=== PATIENT | female | born 1955 | race Caucasian/White ===

== ENCOUNTER → 2017-06-14 | Outpatient (CLI) | payer BC ==
--- NOTE | 2017-06-14 08:27 | US ---
EXAMINATION TYPE: US carotid duplex BILAT DATE OF EXAM: 06/14/2017 COMPARISON: NONE CLINICAL HISTORY: Carotid Occlusive Disease I65.29. EXAM MEASUREMENTS: RIGHT: Peak Systolic Velocity (PSV) cm/sec ----- Right CCA: 100.7 ----- Right ICA: 73.1 ----- Right ECA: 79.4 ICA/CCA ratio: 0.7 RIGHT: End Diastole cm/sec ----- Right CCA: 30.3 ----- Right ICA: 24.5 ----- Right ECA: 17.2 LEFT: Peak Systolic Velocity (PSV) cm/sec ----- Left CCA: 90.7 ----- Left ICA: 84.6 ----- Left ECA: 65.0 ICA/CCA ratio: 0.9 LEFT: End Diastole cm/sec ----- Left CCA: 28.6 ----- Left ICA: 35.3 ----- Left ECA: 17.4 VERTEBRALS (direction of flow): Right Vertebral: Antegrade Left Vertebral: Antegrade Rhythm: Normal No significant velocity elevations. IMPRESSION: No sonographic evidence of hemodynamically significant stenosis within either carotid ar terial system.
== END | disposition home or self-care (01) ==
LOC: RADUSWWP 07:22
PROVIDERS: ATTEND Psychiatry & Neurology Neurology
DX: I65.29 Occlusion and stenosis of unspecified carotid artery (principal)
CPT/HCPCS: 93880

== ENCOUNTER 2017-12-23 11:02 | Day surgery (SDC) | payer BC ==
[2017-12-21 16:14] VITALS: BMI 25.9
[~2017-12-23 11:02] MED LIST: LACTATED RINGERS 1,000 ML IV SCH
[2017-12-23 11:21] VITALS: RESP 16; TEMP 97.8
[2017-12-23] MEDS ORDERED: LIDOCAINE 1% 20 ML VIAL (10MG/ML) FOR IV START INTRADERMA ONE (11:31)
[2017-12-23] MEDS ORDERED: LIDOCAINE 1% INJ 10MG/ML (20 ML MDV) ONE (11:56)
[2017-12-23] MEDS ORDERED: PROPOFOL 10 MG/ML 20 ML VIAL IV ONE (11:56)
--- NOTE | 2017-12-23 12:15 | P.PCN ---
Date of Procedure: 12/23/17 Procedure(s) Performed: BRIEF HISTORY: Patient is a 62-year-old pleasant white female, scheduled for an elective colonoscopy as a part of screening for colorectal neoplasia. PROCEDURE PERFORMED: Colonoscopy with biopsy. PREOPERATIVE DIAGNOSIS: Screening for colon cancer. IV sedation per Anesthesia. PROCEDURE: After informed consent was obtained, the patient, was brought into the endoscopy unit. IV sedation was administered by Anesthesia under continuous monitoring. Digital rectal examination was normal. Initially the Olympus CF- 160 flexible video colonoscope was then inserted in the rectum, gradually advanced into the cecum without any difficulty. Careful examination was performed as the scope was gradually being withdrawn. Ileocecal valve and the appendiceal orifice were visualized and appeared normal. Prep was excellent. Mucosa of the cecum, ascending colon, transverse colon, descending colon, sigmoid colon, and rectum appeared normal. In the sigmoid colon there was a 5 m sessile polyp removed by cold biopsy. Retroflexion was performed in the rectum and no lesions were seen. The patient tolerated the procedure well. IMPRESSION: 5 mm sessile sigmoid colon polyp status post removal by cold biopsy Rest of the colon appeared normal RECOMMENDATIONS: Findings of this examination were discussed with the patient as well as a family. She was advised to follow with the biopsy results and if the biopsy shows adenoma she can have a repeat colonoscopy in 5 years.
[2017-12-23 12:54] VITALS: BP 171/67; PULSE 50
== END 2017-12-23 13:10 | disposition home or self-care (01) ==
LOC: ORWHC2ENDO 11:02
PROVIDERS: ATTEND Internal Medicine Gastroenterology
DX: Z12.11 Encounter for screening for malignant neoplasm of colon (principal); D12.5 Benign neoplasm of sigmoid colon; I71.2 Thoracic aortic aneurysm, without rupture; E07.9 Disorder of thyroid, unspecified; F90.9 Attention-deficit hyperactivity disorder, unspecified type; Z88.5 Allergy status to narcotic agent; Z88.0 Allergy status to penicillin; Z79.890 Hormone replacement therapy; Z79.899 Other long term (current) drug therapy; Z87.891 Personal history of nicotine dependence
CPT/HCPCS: 88305; 45380; J2001; J2704

== ENCOUNTER → 2018-01-03 | Outpatient (CLI) | payer BC ==
--- NOTE | 2018-01-05 10:33 | MM ---
Reason for exam: screening (asymptomatic). Last mammogram was performed 3 years and 5 months ago. History: Patient is postmenopausal. Excisional biopsy of the left breast. Physical Findings: A clinical breast exam by your physician is recommended on an annual basis and results should be correlated with mammographic findings. MG 3D Screening Mammo W/Cad Bilateral CC and MLO view(s) were taken. Prior study comparison: July 27, 2014, bilateral MG screening mammo w CAD. October 16, 2009, bilateral digital screening mammogram. There are scattered fibroglandular densities. No significant changes when compared with prior studies. ASSESSMENT: Negative, BI-RAD 1 RECOMMENDATION: Routine screening mammogram of both breasts in 1 year.
== END | disposition home or self-care (01) ==
LOC: RADMAMWWP 15:32
PROVIDERS: ATTEND Family Medicine
DX: Z12.31 Encounter for screening mammogram for malignant neoplasm of breast (principal)
CPT/HCPCS: 77063; 77067

== ENCOUNTER → 2018-08-02 | Outpatient (CLI) | payer BC ==
--- NOTE | 2018-08-03 22:38 | BD ---
EXAMINATION TYPE: Axial Bone Density DATE OF EXAM: 08/02/2018 COMPARISON: NONE CLINICAL HISTORY: stress fracture left foot Height: 5'2 3/4 Weight: 164 FRAX RISK QUESTIONS: History of Fracture in Adulthood: y Secondary Osteoporosis: RISK FACTORS HISTORY OF: Family History of Osteoporosis: y Diet low in dairy products/other sources of calcium: y Postmenopausal woman: y MEDICATIONS: Thyroid Medications: Which medication: Levothyroxine How Lon years Additional Medications: adderol Additional History: EXAM MEASUREMENTS: Bone mineral densitometry was performed using the [employer] System. Bone mineral density as measured about the Lumbar spine is: ----- L1-L4(G/cm2): 1.038 T Score Values are as follows: ----- L2: -1.3 ----- L3: -0.7 ----- L4: -1.7 ----- L1-L4: -1.2 Bone mineral density about the R hip (g/cm2): 0.795 Bone mineral density about the L hip (g/cm2): 0.824 T Score values are as follows: -----R Neck: -1.8 -----L Neck: -1.5 -----R Total: -1.8 -----L Total: -1.8 IMPRESSION: Osteopenia (T Score between -2.5 and -1). There is slightly increased risk of fracture and the patient may be considered for treatment. Re-Screen 2-5 years. NOTE: T-SCORE=SD OF THE YOUNG ADULT MEAN.
== END ==
LOC: RADBDWWP 16:03
PROVIDERS: ATTEND Family Medicine
DX: M85.80 Other specified disorders of bone density and structure, unspecified site (principal); M84.375D Stress fracture, left foot, subsequent encounter for fracture with routine healing
CPT/HCPCS: 77080

== ENCOUNTER 2019-01-20 05:55 | Day surgery (SDC) | payer BC, OTHER ==
[~2019-01-20 05:55] MED LIST changes: +DEXAMETHASONE SOD PHOSPHATE 10 MG/ML 1 ML VIAL IV ONE; -LACTATED RINGERS 1,000 ML IV SCH; +MIDAZOLAM 2 MG/2 ML VIAL IV PRN; +ONDANSETRON 4 MG/2 ML VIAL IVP ONE; +fentaNYL (PF) 50 MCG/ML 2 ML AMP IV PRN
[2019-01-20] MEDS: SODIUM CHLORIDE 0.9% 1,000 ML IV SCH ×3 (06:24→19:54)
[2019-01-20] MEDS ORDERED: CLINDAMYCIN 600 MG in SODIUM CHLORIDE 0.9% IRRIGATIO 250 ML IRRIGATION ONE (07:00)
[2019-01-20] MEDS ORDERED: CLINDAMYCIN 900 MG in DEXTROSE 5% IN WATER 50 ML IVPB ONE ×2 (07:00)
[2019-01-20] MEDS ORDERED: fentaNYL (PF) 50 MCG/ML 2 ML AMP ONE (07:22)
[2019-01-20] MEDS ORDERED: MIDAZOLAM 2 MG/2 ML VIAL ONE (07:22)
[2019-01-20] MEDS ORDERED: PROPOFOL 10 MG/ML 20 ML VIAL IV ONE (07:22)
[2019-01-20] MEDS ORDERED: IOPAMIDOL-250 50ML BTL IV ONE (07:33)
[2019-01-20] MEDS ORDERED: LIDOCAINE 1% INJ 10MG/ML (20 ML MDV) ONE (07:41)
[2019-01-20] MEDS ORDERED: ACETAMINOPHEN TAB 325 MG TAB PO PRN (09:22)
--- NOTE | 2019-01-20 09:35 | P.PCN ---
Date of Procedure: 01/20/19 Preoperative Diagnosis: Cardiomyopathy, nonischemic with ejection fraction of less than 30%, congestive heart failure Postoperative Diagnosis: The same. Status post single-chamber AICD implantation Procedure(s) Performed: Single-chamber AICD implantation Description of Procedure: HISTORY: This is a 63-year-old female with history of nonischemic heart myopathy and CHF with an ejection fraction of less than 30%. Patient is advised to have prophylactic AICD implantation. CONSENT:I have discussed the risks, benefits and alternative therapies for the above-mentioned procedure and for both sedation/analgesia as well as necessary blood product administration, if indicated, as they pertain to this patient. The patient has indicated understanding and acceptance of the risks and procedures discussed. PROCEDURE: Patient was brought to the lab in a fasting state. Patient was prepped and draped in the usual fashion. Patient is given anesthesia by department of anesthesia. The skin below the left clavicle was infiltrated with lidocaine. An incision was made parallel to deltopectoral groove was deepened until the pectoral fascia was exposed. A pocket was created by blunt dissection and cautery. Axillary venography was performed to delineate the course of the axillary vein. A single venous stick was performed into extrathoracic portion of the axillary vein and a single sheath was advanced over the guidewires and left in subclavian vein. Conscious Sedation: As per anesthesia Duration 53 minutes minutes LEADS: VENTRICULAR: This is manufactured by [employer]. Model number is [id number] and the serial number is [id number]. THE DEVICE: This is manufactured by [employer]. The model number is [id number] and the serial number is [id number]. The ventricular lead is maneuvered l with help of a straight and curved stylets into the left ventricle apical region. Satisfactory position was obtained and threshold measurements were made. The atrial lead was then maneuvered into the right atrial appendage. And thresholds were obtained. THRESHOLDS: VENTRICLE: The minimal pacing threshold is 1 at pulse width of 0.5. The impedance is 9 and 85 ohms. R-wave: 10.1, DFT TESTING: Patient was given deep anesthesia. Ventricular fibrillation was induced with the T shock. It was appropriately detected by device and a 15 J shock converted her back to sinus rhythm. No immediate complications The leads and pulse generator remained in the pocket after it was washed with antibiotics. Pocket was closed in the usual fashion. The fascia was closed with 2-0 Prolene ,the subcutaneous tissue was closed with 3-0 Prolene and the skin was closed with 4-0 Prolene. PROGRAMMING: Jony therapy: MODE: VVI RATE: 40 OUTPUT: Ventricle: 3.5 Tachycardia therapy: VF zone is programmed to a rate of 1 88 bpm. Initial detection is programmed to 30 out of 40 and the lead is programmed followed of 16. The therapies are programmed to 25 J followed by 355. VT zone is programmed to a rate of 167. Therapies are programmed to burst pacing followed with ramp pacing followed by cardioversion 4. Monitor zone is programmed to a rate of 1 50 bpm FINAL IMPRESSION: #1 axillary venography #2 successful implantation of single- chamber single coil AICD #3. DFT testing COMPLICATIONS: None PLAN:. Continue prophylactic antibiotics. Continue to monitor her in the selective care unit. Possible discharge in a.m. Chest x-ray in the morning
[2019-01-20] MEDS: LACTATED RINGERS 1,000 ML IV SCH (13:49)
[2019-01-20] MEDS: CLINDAMYCIN 900 MG in DEXTROSE 5% IN WATER 50 ML IVPB SCH ×4 (14:22→19:53)
[2019-01-20 15:04] VITALS: BMI 22.3
[2019-01-20] MEDS ORDERED: HYDROmorphone 0.5 MG/0.5 ML SYRINGE IVP STA (19:50)
[2019-01-20] MEDS ORDERED: diphenhydrAMINE 50 MG/ML 1 ML VIAL IVP STA (20:36)
[2019-01-20] MEDS ORDERED: methylPREDNISolone SOD SUCCI 125 MG/2 ML VIAL IV STA (20:52)
[2019-01-21] MEDS: CLINDAMYCIN 900 MG in DEXTROSE 5% IN WATER 50 ML IVPB SCH ×4 (00:24→05:43)
[2019-01-21] MEDS: SODIUM CHLORIDE 0.9% 1,000 ML IV SCH ×2 (05:42)
[2019-01-21] MEDS: LACTATED RINGERS 1,000 ML IV SCH (06:23)
--- NOTE | 2019-01-21 06:36 | XR ---
EXAMINATION TYPE: XR chest 2V DATE OF EXAM: 01/21/2019 HISTORY: Lead placement check. REFERENCE: None. FINDINGS: There has been a previous internal fixation of the left clavicle. Unipolar pacemaker is been inserted via a left subclavian approach. The tip overlies the right ventri simon. The heart is enlarged. There are small, bilateral effusions. The lungs are clear. IMPRESSION: SATISFACTORY PACEMAKER LEAD PLACEMENT.
[2019-01-21 09:01] VITALS: BP 105/72; PULSE 92; RESP 16; TEMP 97.9
--- NOTE | 2019-01-21 12:52 | P.DS ---
Providers Attending physician: Keeley Saravia Primary care physician: [facility] Course: This is a pleasant 63-year-old female past medical history significant for nonischemic cardiomyopathy and systolic heart failure with ejection fraction less than 30%. She underwent prophylactic single chamber AICD implantation with Dr. Saravia yesterday. She had an episode of rash and itching yesterday afternoon after receiving a dose of Dilaudid for pain. The Dilaudid was subsequently discontinued and Benadryl given. The patient's symptoms subsided. She is seen and examined sitting up in bed in no acute distress. She denies symptoms of chest discomfort, shortness of breath, dizziness or palpitations. Chest x-ray obtained this morning was normal. Her [employer] device was interrogated and is functioning normally. Blood pressure 105/72 heart rate 92 afebrile maintaining oxygen saturation on room air. The left anterior chest wall site of insertion is clean, dry and intact with no evidence of bleeding, hematoma or infection. Currently maintained on aspirin 81 mg daily, Aldactone 25 mg daily, carvedilol 6.25 mg twice a day, atorvastatin 40 mg daily, lisinopril 5 mg daily, Lasix 20 mg daily and Synthroid 150 g daily. GENERAL: Well-appearing, well-nourished and in no acute distress. NECK: Supple without JVD or thyromegaly. LUNGS: Breath sounds clear to auscultation bilaterally. Respiration equal and unlabored. No wheezes, rales or rhonchi. HEART: Regular rate and rhythm with systolic ejection murmur, no rubs or gallops. S1 and S2 heard. EXTREMITIES: Normal range of motion, no edema. No clubbing or cyanosis. Peripheral pulses intact. ASSESSMENT Status post single-chamber AICD placement Ischemic cardiomyopathy Chronic systolic heart failure Hypertension Dyslipidemia PLAN Stable for discharge. Instructions provided for her post-care. Follow-up in the office with Dr. Saravia in one week. Nurse Practitioner note has been reviewed, I agree with a documented findings and plan of care. Patient was seen and examined. Patient Condition at Discharge: Stable Plan - Discharge Summary Discharge Rx Participant: Yes New Discharge Prescriptions: Continue Levothyroxine Sodium [Synthroid] 150 mcg PO DAILY Furosemide [Lasix] 20 mg PO DAILY Cholecalciferol [Vitamin D3 (25 Mcg = 1000 Iu)] 2,000 unit PO DAILY Lisinopril [Zestril] 5 mg PO HS Atorvastatin [Lipitor] 40 mg PO HS Carvedilol [Coreg] 6.25 mg PO BID Spironolactone 25 mg PO QAM Calcium/Magnesium/Zinc [Psknmua-Zyvcejsyj-Ilur Tablet] 1 each PO DAILY Aspirin [Adult Low Dose Aspirin EC] 81 mg PO DAILY Umeclidinium Brm/Vilanterol Tr [Anoro Ellipta 62.5-25 Mcg INH] 1 puff INHALATION DAILY PRN PRN Reason: Dyspnea Discharge Medication List Levothyroxine Sodium [Synthroid] 150 mcg PO DAILY 12/21/17 [History] Aspirin [Adult Low Dose Aspirin EC] 81 mg PO DAILY 12/27/18 [History] Atorvastatin [Lipitor] 40 mg PO HS 12/27/18 [History] Calcium/Magnesium/Zinc [Oscyfxi-Rwhosunhy-Jdcm Tablet] 1 each PO DAILY 12/27/18 [History] Carvedilol [Coreg] 6.25 mg PO BID 12/27/18 [History] Cholecalciferol [Vitamin D3 (25 Mcg = 1000 Iu)] 2,000 unit PO DAILY 12/27/18 [History] Furosemide [Lasix] 20 mg PO DAILY 12/27/18 [History] Lisinopril [Zestril] 5 mg PO HS 12/27/18 [History] Spironolactone 25 mg PO QAM 12/27/18 [History] Umeclidinium Brm/Vilanterol Tr [Anoro Ellipta 62.5-25 Mcg INH] 1 puff INHALATION DAILY PRN 01/18/19 [History] Follow up Appointment(s)/Referral(s): Keeley Saravia MD [STAFF PHYSICIAN] - 1 Week ([facility] call [facility] on wednesday to set up a device clinic follow up for wednesday. ) Patient Instructions/Handouts: Implantable Cardioverter Defibrillator (DC) Activity/Diet/Wound Care/Special Instructions: leave dressing on until device clinic follow up. keep dressing dry and cover with saran/cling wrap prior to a shower. do not raise your left arm above your head for 6 weeks. avoid movements such as back scratching, rubbing the head, or pulling a cord with left arm for 6 weeks. opposite arm may be used freely. no driving for 7 days. any problems, call [facility] @ [phone], attention: device clinic. follow up in device clinic in 5 days-- Wednesday, Jan 25, 2019 Please call [facility] to make this appointment on Wednesday. Discharge Disposition: HOME SELF-CARE
== END 2019-01-21 11:16 | disposition home or self-care (01) ==
LOC: CATHEP 05:55 → 1SOBS 09:32 → CATHEP 01-21 11:16
PROVIDERS: ATTEND Internal Medicine Cardiovascular Disease
DX: I42.0 Dilated cardiomyopathy (principal); I11.0 Hypertensive heart disease with heart failure; I50.22 Chronic systolic (congestive) heart failure; Z87.891 Personal history of nicotine dependence; Z79.82 Long term (current) use of aspirin; Z79.890 Hormone replacement therapy; Z79.899 Other long term (current) drug therapy; Z88.5 Allergy status to narcotic agent; Z88.0 Allergy status to penicillin
CPT/HCPCS: 33249; 93641; 71046; C1769 ×2; C1892; C1895; C1722; J2250; J1200; J2930; J3010; J2704; J1170; Q9966

== ENCOUNTER → 2021-10-08 | Outpatient (CLI) | payer MEDICARE, OTHER ==
--- NOTE | 2021-10-08 10:07 | BD ---
EXAMINATION TYPE: Axial Bone Density DATE OF EXAM: 10/08/2021 COMPARISON: NONE CLINICAL HISTORY: 65 years year old Female. ICD-10 CODE: M89.9 DISORDER OF BONE Height: 5 FT 4 IN Weight: 193 FRAX RISK QUESTIONS: Alcohol (3 or more units per day): NO Family History (Parent hip fracture): NO Glucocorticoids (More than 3mos): NO (Ex: prednisone, prednisolone, methylprednisolone, dexamethasone, and hydrocortisone). History of Fracture in Adulthood: YES Secondary Osteoporosis: 1. Type 1 Diabetes: NO 2. Hyperthyroidism: NO 3. Menopause before 45: YES 4. Malnutrition: NO 5. Chronic liver disease: NO Rheumatoid Arthritis: NO Current Tobacco Use: NO RISK FACTORS HISTORY OF: Surgery to Spine/Hip(right/left)/Wrist (right/left): NO Family History of Osteoporosis: NO Active: YES Diet low in dairy products/other sources of calcium: NO Postmenopausal woman: YES Take estrogen and/or progesterone medications: FOR A SHORT TIME Lost more than 2 inches in height since high school: NO Frequent falls: NO Poor Health: FAIR Hyperparathyroidism: NO Adrenal Insufficiency: NO MEDICATIONS: Thyroid Medications: YES Which medication: LEVOTHYROXINE How Long: SINCE IN HER 20'S Additional Medications: LEVOTHYROXINE, ADVAIR, ASPIRIN, ATOMOXETINE, ATORVASTATIN, CARVEDILOL, FUROSE MIDE, LISINOPRIL, PANTOPRAZOLE, SPIRONOLACTONE Additional History: EXAM MEASUREMENTS: Bone mineral densitometry was performed using the [employer] System. Bone mineral density as measured about the Lumbar spine is: ----- L1-L4(G/cm2): 1.061 T Score Values are as follows: ----- L1: -1.1 ----- L2: -1.2 ----- L3: -0.1 ----- L4: -1.6 ----- L1-L4: -1.0 Bone mineral density has: INCREASED 3.5 % since study of: 2019 Bone mineral density about the R hip (g/cm2): 0.753 Bone mineral density about the L hip (g/cm2): 0.749 T Score values are as follows: -----R Neck: -2.0 -----L Neck: -2.1 -----R Total: -1.9 -----L Total: -1.7 Bone mineral density has: DECREASED -0.6 % since study of: 2019 FRAX%s: The graph provided illustrates a 17.4 % chance for a major osteoporotic fx and a 2.8 % chance for the hips probability for fx in 10 years time. IMPRESSION: Osteopenia bilateral femora. NOTE: T-SCORE=SD OF THE YOUNG ADULT MEAN.
== END | disposition home or self-care (01) ==
LOC: RADBDWWP 07:04
PROVIDERS: ATTEND Family Medicine
DX: M85.88 Other specified disorders of bone density and structure, other site (principal)
CPT/HCPCS: 77080

== ENCOUNTER → 2024-02-03 | Outpatient (CLI) | payer MEDICARE, OTHER ==
[2024-02-03 20:29] LABS: T4, Free (Free Thyroxine) 1.9 ng/dL (0.80-1.80)
== END | disposition home or self-care (01) ==
LOC: LABWHC1 15:00
PROVIDERS: ATTEND Family Medicine
DX: E03.9 Hypothyroidism, unspecified (principal)
CPT/HCPCS: 36415; 84439; 84443; 84481

== ENCOUNTER → 2024-02-14 | Outpatient (CLI) | payer MEDICARE ==
[2024-02-14 16:22] LABS: NT-Pro-B-Type Natriuretic Pept 182 pg/mL (0-125)
[2024-02-14 16:58] LABS: ALT 16 U/L (8-44); AST 21 U/L (13-35); BUN/Creat Ratio 24.86 Ratio (12.00-20.00); Blood Urea Nitrogen 34.8 mg/dL (9.0-27.0); Calcium 9.4 mg/dL (8.7-10.3); Carbon Dioxide 24.8 mmol/L (21.6-31.8); Chloride 103 mmol/L (96-109); Chol/HDL Ratio 3.79 Ratio; Glucose 118 mg/dL (70-110); LDL Cholesterol,Calculated 112.9 mg/dL (0.0-131.0); Potassium 4.8 mmol/L (3.5-5.5); Sodium 142 mmol/L (135-145)
== END | disposition home or self-care (01) ==
LOC: LABWHC1 08:52
PROVIDERS: ATTEND Internal Medicine Cardiovascular Disease
DX: E78.2 Mixed hyperlipidemia (principal)
CPT/HCPCS: 36415; 80048; 80061; 83880; 84450; 84460

== ENCOUNTER → 2024-09-25 | Outpatient (CLI) | payer MEDICARE ==
--- NOTE | 2024-09-25 11:32 | XR ---
EXAMINATION TYPE: XR thoracic spine 2V DATE OF EXAM: 09/25/2024 11:23 AM INDICATION: Patient age:Female; 68 years old; Reason for study: M54.6 PAIN IN THORACIC SPINE; PHH. pain COMPARISON: Chest radiograph 01/21/2019 TECHNIQUE: Frontal, lateral, and swimmer's projections of the thoracic spine. FINDINGS: No acute fracture. Normal alignment of the thoracic spine. Multilevel disc space narrowing with endplate sclerosis of the thoracic spine. Left clavicular fixation hardware. The visualized lung s are clear. Left chest wall single lead AICD. Cholecystectomy clips in the right upper quadrant. IMPRESSION: 1. No acute process. 2. Mild multilevel degenerative disc disease of the thoracic spine. [facility], , 09/25/2024 11:29 AM
== END | disposition home or self-care (01) ==
LOC: RADXRMAIN 11:07
PROVIDERS: ATTEND Family Medicine
DX: M51.34 Other intervertebral disc degeneration, thoracic region (principal)
CPT/HCPCS: 72070